=== PATIENT | female | born 1995 | race Caucasian/White ===

== ENCOUNTER → 2024-05-11 08:43 | Outpatient (BNVA) | payer SELFPAY | PROVIDERS: Visit Provider Physician Assistant Medical ==

== ENCOUNTER 2024-07-02 20:25 | Emergency (ER) | payer BC, SELFPAY ==
--- NOTE | ~2024-07-02 | XR_ITS ---
EXAMINATION: XR FOOT, RIGHT CLINICAL INFORMATION: great toe pain and bruising, kicked a weight COMPARISON: None available. TECHNIQUE: AP, lateral, and oblique views of the right foot. FINDINGS: The bones and soft tissues are normal. No fracture. Alignment is anatomic. Joint spaces are maintained. XR/XR foot RT min 3V IMPRESSION: Normal right foot. Electronically signed by: Nixon Sales MD 07/02/2024 09:59 PM EST
--- NOTE | 2024-07-02 20:34 | ED.GENADULT ---
HPI - General Adult General Chief complaint: Extremity Injury, Lower Stated complaint: rt foot injury Time Seen by Provider: 07/03/24 01:17 Source: patient Mode of arrival: ambulatory Limitations: no limitations History of Present Illness ED Provider: Dr. Angie Gooden HPI narrative: Patient comes to the emergency room complaining of a bruise to the dorsum of the great toe of the right foot. Patient states that she accidentally kicked a dumbbell Related Data Allergies Allergy/AdvReac Type Severity Reaction Status Date / Time No Known Allergies Allergy Verified 07/02/24 20:38 Review of Systems Review of Systems: Constitutional : No Weight loss, No Fever, No Chills, No Night Sweats, No Fatigue, No Malaise ENT/Mouth : No Hearing loss, No Ear Pain, No Nasal Congestion, No Sinus Pain, No Hoarseness, No sore throat, No Rhinorrhea, No Swallowing Difficulty Eyes: No Eye Pain, No Swelling, No Redness, No Foreign Body, No Discharge, No Vision Changes Cardiovascular : No Chest Pain, No SOB, No Dyspnea on Exertion, No Orthopnea, No Edema, No Palpitations Respiratory : No Cough, No Sputum, No Wheezing, No Smoke Exposure, No Dyspnea Gastrointestinal : No Nausea, No Vomiting, No Diarrhea, No Constipation, No abdominal Pain, No Hematochezia, No Melena Genitourinary : no irregular bleeding, No Dysuria, No Urinary Frequency, No Hematuria, No Urinary Incontinence, No Urgency, No Flank Pain, No Urinary Flow Changes, No Hesitancy Musculoskeletal : No joint pain, No Myalgias, No Joint Swelling Skin : Ecchymosis on a toe Neuro : No Weakness, No Numbness, No Paresthesias, No Loss of Consciousness, No Dizziness, No Headache Psych : No Anxiety/Panic, No Depression, No SI/HI/AH/VH, No Social Issues, Heme/Lymph: No Bruising, No Bleeding,No Lymphadenopathy Endocrine : No Polyuria, No Polydipsia, No Temperature Intolerance PMFSH Social History Social History Advance Directives: No Advance Directives Information Provided: No Do you have a plan to hurt others: No Plan Physical Exam ED Vital Signs: Vital Signs - 24 hr 07/02/24 20:35 07/02/24 22:00 07/02/24 23:49 Temperature 98.3 F 97.8 F 98.6 F Pulse Rate 77 84 91 Respiratory Rate 16 16 16 Blood Pressure 120/78 128/82 110/80 Pulse Oximetry 100 100 97 Oxygen Delivery Method Room Air Room Air Room Air BMI result Body Mass Index 22.3 Const Other: Appearance: Alert. Oriented X3. No acute distress. Eyes: Pupils equal, round and reactive to light. ENT: Pharynx normal. Neck: Normal inspection. Neck supple. No lymph nodes noted. No crepitus CVS: Normal heart rate and rhythm. Pulses normal. Normal S1 and S2 Respiratory: No respiratory distress. Breath sounds normal. No Wheezing. No rales Abdomen: Soft and nontender. No rigidity. No distention. Skin: Skin warm and dry. Normal skin color. Normal skin turgor. Extremities: No lower extremity edema. No Lacerations. No Rash. Patient's great toe on the right foot dorsal aspect has a small ecchymosis Neuro: Oriented X 3. No motor deficit. No sensory deficit. Moving all extremities. No slurred speech. CN 2 through 12 grossly intact Psych: calm, cooperative, normal affect Course Course Course Narrative: This is a rapid medical exam performed by Kennedy Michael NP: Additional HPI, ROS, PE not included below will be deferred to primary provider. Patient is a 28-year-old female presenting to the ED with complaint of pain and bruising to right great toe. States that she tripped over a weight on the floor yesterday. Plan: xray Medical Decision Making Medical Decision Making [facility] Narrative: My interpretation of x-ray of the foot: Normal toes, no fracture Differential Diagnosis Differential Diagnoses: The differential diagnosis associated with the presentation includes (Toe contusion, fracture, versus dislocation) Independent Interpretation I performed an independent interpretation of an: Plain X-Ray Radiology Impression Discussion of test interpretation with radiology: I have reviewed the radiologist's reading. Radiologist Impression: The bones and soft tissues are normal. No fracture. Alignment is anatomic. Joint spaces are maintained. XR/XR foot RT min 3V IMPRESSION: Normal right foot. Discharge Plan Discharge Clinical Impression: Contusion of toe Patient Disposition: Home, Self-Care Instructions: Foot Contusion (ED) Additional Instructions: Please follow-up with your primary care physician tomorrow. If you have any worsening or new symptoms, please return to the emergency room or call 911 Print Language: Turkmen
[2024-07-02 20:35] VITALS: BP 120/78; PULSE 77; RESP 16; TEMP 36.8; O2SAT 100; BMI 22.3
[2024-07-02 22:00] VITALS: BP 128/82; PULSE 84; RESP 16; TEMP 36.6; O2SAT 100
[2024-07-02 23:49] VITALS: BP 110/80; PULSE 91; RESP 16; TEMP 37; O2SAT 97
[2024-07-03 01:43] VITALS: BP 142/92; PULSE 80; RESP 16; TEMP 36.8; O2SAT 97
[2024-07-03 02:08] VITALS: BP 142/92; PULSE 80; RESP 16; TEMP 36.8; O2SAT 97
== END 2024-07-03 02:11 | disposition home or self-care (01) ==
PROVIDERS: Emergency Provider Emergency Medicine; PCP Family Medicine
DX: S90.111A Contusion of right great toe without damage to nail, initial encounter (principal); W22.8XXA Striking against or struck by other objects, initial encounter; Y93.89 Activity, other specified; Y92.9 Unspecified place or not applicable; Y99.9 Unspecified external cause status
CPT/HCPCS: 73630; 99283

== ENCOUNTER 2024-09-09 07:48 | Outpatient (AMB) | payer BC, SELFPAY ==
[2024-09-09 07:51] VITALS: BP 112/70; PULSE 85; O2SAT 99; BMI 22.7
--- NOTE | 2024-09-09 07:51 | MHC.PC.OV ---
Vital Signs 09/09/24 07:51 Height 5 ft 4 in Weight 132 lb BMI 22.7 BP 112/70 Blood Pressure Location Lt brachial Position Sitting Pulse 85 Pulse Source Pulse Oximeter Pulse Oximetry (%) 99 Oxygen Delivery Method Room Air Intake Visit Reasons: establish care Allergies No Known Allergies Allergy (Verified 09/09/24 08:07) Medication List - Last Reconciled 09/09/24 by Denise Sam PA-C dextroamphetamine-amphetamine 15 mg ER (Adderall XR) 15 mg PO DAILY dextroamphetamine-amphetamine 5 mg (Adderall) 5 mg PO DAILY PRN Tobacco use date assessed: 09/09/24 Dental Screening Dental Screen Date: 09/09/24 Did you have a dental visit in the last 12 months?: Yes Did you have a dental problem in the last 6 months where you did not have access to dental care?: No Was dental information given to patient?: Patient has dentist HPI establish care HPI Details 28-year-old female coming to the office for the 1st time. Patient was last seen at [facility] last year. She has a telehealth provider for Psychiatry who prescribes her Adderall in his managing her depression and anxiety as well. Her last primary care diagnosed her with nailbed fungus and treated her with topical clotrimazole which did not help. She is also complaining of scalp itching. Reports ADHD managed with Adderall, after subpar results with SSRIs for concomitant depression and anxiety. Enhanced dry mouth and eyes with a concern for Sjogren's Syndrome based on familial history. [facility] Medical History HPV (human papilloma virus) infection Family History Mother Hypertension Sjogren syndrome Father Hypertension Brother No problems noted. 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 1. Little interest or pleasure in doing things: several days 2. Feeling down, depressed, or hopeless: several days 3. Trouble falling or staying asleep, or sleeping too much: nearly every day 4. Feeling tired or having little energy: nearly every day 5. Poor appetite or overeating: more than half the days 6. Feeling bad about yourself - or that you are a failure or have let yourself or your family down: several days 7. Trouble concentrating on things, such as reading the newspaper or watching television: several days 8. Moving or speaking so slowly that other people could have noticed. Or the opposite - being so fidgety or restless that you have been moving around a lot more than usual: not at all 9. Thoughts that you would be better off or of hurting yourself in some way: not at all Total score: 12 Depression Screening Interpretation: Positive Depression Screening Follow-up: Existing condition and In treatment Depression Screening Done: Yes 88820 - PHQ-9 Billing: Yes Source: Developed by Drs. Jeremias Munguia, Cami Coburn, Enrico Velasquez and colleagues, with an educational terence from [employer]. Thrive Questionnaire Date Thrive assessed: 09/09/24 I am a: Patient What is your living situation today?: I have a steady place to live Within the past 12 months, did the food you bought not last and you didn't have the money to get more?: Never true Within the past 12 months, did you worry whether your food would run out before you got money to buy more?: Sometimes True Do you have trouble paying for medicines?: No Do you have trouble getting transportation to medical appointments?: No Do you have trouble paying your heating and electricity bill?: Yes Do you have trouble taking care of your child, family member or friend?: No Do you have trouble with day-to-day activities such as bathing, preparing meals, shopping, managing finances, etc.?: No Are you currently unemployed and looking for a job?: No Are you interested in more education?: Yes Please select the resources that you would like help with: Utilities Currently or been in a relationship where the following occur: No concerns reported THRIVE Score: 2 AUDIT C Alcohol Use Questionnaire (AUDIT-C) 1. How often do you have a drink containing alcohol?: Never 2. How many drinks containing alcohol do you have on a typical day when you are drinking?: 1 or 2 3. How often do you have six or more drinks on one occasion?: Never Total Score: 0 DALLAS-7 AMB Questionnaire DALLAS-7 Date DALLAS - 7 assessed: 09/09/24 Feeling nervous, anxious, or on edge: 3 = Nearly every day Not being able to stop or control worryin = Nearly every day Worrying too much about different things: 3 = Nearly every day Trouble relaxin = Nearly every day Being so restless that it is hard to sit still: 0 = Not at all Becoming easily annoyed or irritable: 3 = Nearly every day Feeling afraid as if something awful might happen: 3 = Nearly every day Total DALLAS-7 score (0-4 normal; 5-9 mild; 10-14 moderate; 15-21 severe): 18 Source: Developed by Drs. Jeremias Munguia, Cami Coburn, Enrico Velasquez and colleagues, with an educational terence from [employer]. DALLAS-7 Assessment Billing DALLAS-7 Assessment Tool: DALLAS-7 Assessment 02182 Review of Systems Const Denies body aches, Denies chills, Denies fever(s), Denies headache(s) and Denies poor appetite Eyes Reports no additional complaints ENT Denies dysphagia, Denies dizziness, Denies headache(s) and Denies odynophagia Card Denies chest pain, Denies syncope, Denies edema, Denies irregular heart rhythm, Denies lightheadedness and Denies dyspnea Resp Denies cough and Denies dyspnea GI Denies abdominal pain, Denies constipation, Denies dysphagia, Denies diarrhea, Denies nausea, Denies odynophagia and Denies vomiting Reports no additional complaints Musc Reports no additional complaints and Denies abnormal gait Skin/Breast Reports system reviewed and no additional complaints, except as documented Neuro Denies abnormal gait, Denies dizziness, Denies syncope and Denies headache(s) Psych Reports no additional complaints Physical exam (Primary Care) Vital Signs: Oxygen Delivery Method Room Air 09/09/24 07:51 Depression Screening Interpretation: Positive Depression Screening Follow-up: Existing condition and In treatment Thrive Assessment: Date of Thrive Assessment Date Thrive assessed 09/06/24 09/06/24 05:33 Currently or been in a relationship where the following occur: No concerns reported Const General: cooperative, healthy appearing, comfortable and no acute distress Orientation/consciousness: patient oriented x3 [facility] Head: Yes normocephalic Ears: hearing grossly normal bilaterally General nose exam: Normal external nose present Eyes General: appearance normal, both eyes and all related structures Conjunctivae: conjunctivae normal Neck Neck: Yes full ROM and Yes no lymphadenopathy Resp Effort & Inspection: normal respiratory effort Auscultation: clear to auscultation bilaterally, no crackles, no rales, no rhonchi and no wheezes Cardio Rate: regular rate Rhythm: regular rhythm Skin Other: nail thickening and irregular borders of the right thumb and bilateral index fingers General skin exam: no rashes or lesions noted Neuro General: patient oriented x3 Gait exam (Neuro): Normal gait present Extrem General: Yes normal to inspection, Yes full ROM and No edema Psych Affect: normal affect Attitude: cooperative Insight: Good insight present (Psych) Judgement: Good judgement present (Psych) Coding Level of Care Code New Pt Level 4 (92541) Diagnoses ADHD F90.9 Dry eye H04.129 Dry mouth R68.2 Nail fungus B35.1 Depression F32.A Anxiety F41.9 Tinea capitis B35.0 Additional Codes DALLAS-7 Assessment Billing - DALLAS-7 Assessment Tool: DALLAS-7 Assessment 74603 ([id number]) PHQ-9 - 82901 - PHQ-9 Billing: Yes ([id number]) Assessment & Plan Assessment & Plan (1) ADHD: Code(s): F90.9 - Attention-deficit hyperactivity disorder, unspecified type Category: Medical Plan: Plan to continue following with psychiatrist. Discussed with patient her Adderall may be the cause of her dry mouth and dry eyes and to discuss with her psychiatrist. (2) Dry eye: Code(s): H04.129 - Dry eye syndrome of unspecified lacrimal gland Category: Medical Plan: Patient having persistent dry eyes for many years advised to use lubricating eyedrops. Ordered blood work to rule out Sjogren's syndrome. (3) Dry mouth: Code(s): R68.2 - Dry mouth, unspecified Category: Medical Plan: Patient complaining of new onset dry mouth since initiation of Adderall. Discussed with patient this is a side effect of this medication and to discuss with her psychiatrist further. Recommend using [id number] Biotene mouthwash and lozenges. Ordered blood work to rule out Sjogren's (4) Nail fungus: Code(s): B35.1 - Tinea unguium Category: Medical Plan: Patient having used topical clotrimazole without good relief. Recommended terbinafine however patient would like evaluation by Dermatology. Referral placed (5) Depression: Code(s): F32.A - Depression, unspecified Category: Medical Plan: Patient having history of depression treated on many different SSRIs in the past without good relief. She is currently following with her psychiatrist for management of her depression and anxiety. Declines referral to counselor. I did discuss with the patient counseling services through [facility]. (6) Anxiety: Code(s): F41.9 - Anxiety disorder, unspecified Category: Medical Plan: Patient having history of depression treated on many different SSRIs in the past without good relief. She is currently following with her psychiatrist for management of her depression and anxiety. Declines referral to counselor. I did discuss with the patient counseling services through [facility]. (7) Tinea capitis: Code(s): B35.0 - Tinea barbae and tinea capitis Category: Medical Plan: Trial of ketoconazole shampoo and follow up with Dermatology. Plan Patient was informed and verbally consented to the use of an ambient scribe for clinic note documentation during this visit. This note was constructed using voice recognition software. While every effort has been made to ensure accuracy and landscape architect, still areas may have been included sometimes these areas may affect the content or meeting of the given symptoms. Total time spent caring for the patient today was 30 minutes. This includes time spent before the visit reviewing the chart, time spent during the visit, and time spent after the visit and documentation. Orders: Orders Comprehensive Met. Panel Today Z00.00 - Encounter for general adult medical examination without abnormal findings Complete Blood Count Auto Diff Today Z00.00 - Encounter for general adult medical examination without abnormal findings TSH reflex Free T4 Today Z00.00 - Encounter for general adult medical examination without abnormal findings Vitamin D 25-OH Total Today Z00.00 - Encounter for general adult medical examination without abnormal findings Free T4 (Free Thyroxine) Today Z00.00 - Encounter for general adult medical examination without abnormal findings SHARON Reflex Titer and Pattern Today H04.129 - Dry eye syndrome of unspecified lacrimal gland, R68.2 - Dry mouth, unspecified Vitamin B12 and Folate Today Z00.00 - Encounter for general adult medical examination without abnormal findings Sjogren's Antibodies Today H04.129 - Dry eye syndrome of unspecified lacrimal gland, R68.2 - Dry mouth, unspecified Referrals Dermatology Referral B35.1 - Tinea unguium [employer]GER [employer] Referral Z12.4 - Encounter for screening for malignant neoplasm of cervix Medications: New ketoconazole 2% 1 appl topical 2XW 120 mL 0RF
--- OUTSIDE RECORDS SUMMARY | 2024-09-09 07:51 | XMS_ITS | Continuity of Care Document ---
Author Organization [facility] Address [address] [place] [address] [place] [address] Phone Care Team Providers Care Construction Sales Manager Name Role Phone Unavailable Unavailable Unavailable Procedures Procedure Date Psychotherapy, 30 Minutes Psychotherapy, 30 Minutes Psychiatric Diagnostic Eval Advance Directives Directive Yes / No Effective Date File Name No Information Encounters Encounter Description Practice Location Reason(s) For Visit Diagnoses Date Provider Providers Copied on Encounter Psychotherapy , 30 Minutes [facility], [address] [place] [address], [id number], tel:[phone] [facility] [place] Depression No Information Psychotherapy , 30 Minutes [facility], [address] [place] [address], [id number], tel:[phone] [facility] [place] Depression No Information Psychiatric Diagnostic [facility], [address] [place] [address], [id number], tel:[phone] [facility] [place] Depression No Information Family History Family Member Type Diagnosis Age At Onset No Information Payers Payer name Insurance type Covered republican ID Authoriza tion(s) [facility] [place] [id number] MediCal Differential Rate MC [id number] Social History Type Description Quantity Date Captured Comments Alcohol Use Details Unknown Caffeine Use Details Unknown Tobacco Use Status No Information Smoking Status No Information Sex Female Sexual Orientation Straight or heterosexual Jan Gender Identity Female Chief Complaint And Reason For Visit No Information Reason For Referral Reason For Referral No Information History Of Present Illness Encounter Date Complaint History Of Prese nt Illness No Information Functional Status Date Functional Assessmen t No Information Instructions Date Instruction Additional Infor mation No Information Assessments Type Assessment Date assessment Depression Patient Care Teams Name Effective Dates (start - stop) Status Members No Information
== END 2024-09-09 08:43 | disposition home or self-care (01) ==
DX: F90.9 Attention-deficit hyperactivity disorder, unspecified type (principal); H04.129 Dry eye syndrome of unspecified lacrimal gland; R68.2 Dry mouth, unspecified; B35.1 Tinea unguium; F32.A Depression, unspecified; F41.9 Anxiety disorder, unspecified; B35.0 Tinea barbae and tinea capitis

== ENCOUNTER → 2024-09-09 07:48 | Outpatient (BNVA) | payer BC, SELFPAY | DX: F90.9 Attention-deficit hyperactivity disorder, unspecified type (principal); H04.129 Dry eye syndrome of unspecified lacrimal gland; R68.2 Dry mouth, unspecified; B35.1 Tinea unguium; F32.A Depression, unspecified; F41.9 Anxiety disorder, unspecified; B35.0 Tinea barbae and tinea capitis | CPT/HCPCS: 96127 ==

== ENCOUNTER 2024-09-10 07:04 | Outpatient (REF) | payer OTHER, SELFPAY ==
--- OUTSIDE RECORDS SUMMARY | 2024-09-10 07:08 | XMS_ITS | Continuity of Care Document ---
Author Organization [facility] Address [address] [place] [address] [place] [address] Phone Care Team Providers Care Research And Development Engineer Name Role Phone Unavailable Unavailable Unavailable Procedures Procedure Date Psychotherapy, 30 Minutes Psychotherapy, 30 Minutes Psychiatric Diagnostic Eval Advance Directives Directive Yes / No Effective Date File Name No Information Encounters Encounter Description Practice Location Reason(s) For Visit Diagnoses Date Provider Providers Copied on Encounter Psychotherapy , 30 Minutes [facility], [address] [place] [address], [id number], tel:[phone] [facility] [place] Depression No Information Psychotherapy , 30 Minutes [facility], [address] [place] [address], [id number], tel:[phone] [facility] [place] Depression No Information Psychiatric Diagnostic [facility], [address] [place] [address], [id number], tel:[phone] [facility] [place] Depression No Information Family History Family Member Type Diagnosis Age At Onset No Information Payers Payer name Insurance type Covered constitution party ID Authoriza tion(s) [facility] [place] [id number] MediCal Differential Rate MC [id number] Social History Type Description Quantity Date Captured [...]
[2024-09-10 07:19] LABS: MANUAL DIFF FLAG NO
[2024-09-10 07:48] LABS: Basophils Absolute Auto 0.1 X10*3/uL (0.0-0.2); Basophils Percent Auto 0.5 % (0-2); Eosinophils Absolute Auto 0.1 X10*3/uL (0.0-0.4); Eosinophils Percent Auto 0.5 % (0-4); Hematocrit 43.4 % (37.0-47.0); Hemoglobin 14.7 g/dl (12.0-16.0); Imm Gran Abs Auto 0.04 X10*3/uL (0.00-0.03); Imm Gran Pct Auto 0.3 % (0.0-0.4); Lymphocytes Absolute Auto 2.5 X10*3/uL (1.2-4.9); Lymphocytes Percent Auto 20.6 % (20-40); Mean Corpuscular HGB Conc 33.9 g/dl (31.0-35.0); Mean Corpuscular Hemoglobin 28.7 pg (27.0-33.0); Mean Corpuscular Volume 84.8 fL (80.0-98.0); Monocytes Absolute Auto 0.6 X10*3/uL (0.1-1.2); Monocytes Percent Auto 4.7 % (2-11); Neutrophils Absolute Auto 8.8 x10*3/uL (2.0-8.3); Neutrophils Percent Auto 73.4 % (45-73); Platelet Count 394 X10*3/uL (160-400); Red Blood Count 5.12 X10*6/uL (4.20-5.50); Red Cell Distribution Width 12.5 % (11.0-16.0)
[2024-09-10 08:49] LABS: Alanine Aminotransferase 31 U/L (0-31); Albumin Level 4.9 g/dL (3.5-5.0); Alkaline Phosphatase 84 U/L (39-117); Anion Gap 13 (12-20); Aspartate Amino Transferase 52 U/L (5-31); Bilirubin Total 0.5 mg/dL (0.0-1.0); Blood Urea Nitrogen 8 mg/dL (9-16); Calcium 9.6 mg/dL (8.4-10.2); Carbon Dioxide 25 mmol/L (22-29); Chloride 105 mmol/L (96-108); Estimated Glomerular Filt Rate > 60; Glucose Random 86 mg/dL (60-115); Potassium 3.5 mmol/L (3.3-5.1); Sodium 139 mmol/L (135-145); Total Protein 8.3 g/dL (6.5-8.0)
[2024-09-10 08:59] LABS: Free T4 (Free Thyroxine) 1.23 ng/dL (0.71-1.85); Vitamin D 25-OH Total 22.5 ng/mL (>30)
[2024-09-10 09:08] LABS: Folate 13.1 ng/mL (> or = 4.0); Vitamin B12 737 pg/mL (200-900)
[2024-09-13 22:23] LABS: Antibody to SS-A Antigen <1.0 NEG AI (<1.0 NEG); Antibody to SS-B Antigen <1.0 NEG AI (<1.0 NEG)
[2024-09-16 12:18] LABS: Anti Nuclear Antibody Screen NEGATIVE (NEGATIVE)
== END 2024-09-10 07:05 | disposition home or self-care (01) ==
LOC: HO.LAB 07:04
DX: Z00.00 Encounter for general adult medical examination without abnormal findings (principal); H04.129 Dry eye syndrome of unspecified lacrimal gland; R68.2 Dry mouth, unspecified
CPT/HCPCS: 36415; 80053; 82306; 82607; 82746; 84439; 84443; 85025; 86038; 86235

== ENCOUNTER → 2025-01-31 13:29 | Outpatient (BNVA) | payer OTHER, SELFPAY | PROVIDERS: Visit Provider Physician Assistant Medical | DX: Z13.89 Encounter for screening for other disorder (principal) | CPT/HCPCS: 73110; 73130; 99202 ==

== ENCOUNTER → 2025-02-03 14:51 | Outpatient (BNVA) | payer OTHER, SELFPAY | PROVIDERS: Visit Provider Physician Assistant Medical | DX: Z13.89 Encounter for screening for other disorder (principal) | CPT/HCPCS: 99213 ==